=== PATIENT | female | born 1940 | race Caucasian/White ===

== ENCOUNTER → 2016-08-18 | Outpatient (CLI) | payer MEDICARE, BC | LOC: WC.BC 08:54 | DX: C50.912 Malignant neoplasm of unspecified site of left female breast (principal); Z08 Encounter for follow-up examination after completed treatment for malignant neoplasm | CPT/HCPCS: G0204; G0279 ==

== ENCOUNTER 2017-03-08 07:30 | Inpatient (IN) ==
[~2017-03-08 07:30] MED LIST: ACETAMINOPHEN 500 MG TABLET PO ONE; CLINDAMYCIN PB 900 MG/50 ML BAG IV ONE; DEXAMETHASONE 4 MG/ML INJECTION IVP ONE; FAMOTIDINE PB 20 MG/50 ML BAG IV ONE; LIDOCAINE 1% (10mg/ml) 2mL INJ PF SDV ID ONE; METOCLOPRAMIDE 10mg/2ml INJECTION IVP ONE; NOZIN NASAL SWAB NAS ONE; ONDANSETRON 4 MG/2 ML INJECTION IVP ONE; TRANEXAMIC ACID 1,000 MG in NS 100 ML IV ONE
[2017-03-08] MEDS ORDERED: EPINEPHrine PF 0.25 MG, BUPIVACAINE 0.25% PF 30 ML, KETOROLAC INJ 60 MG in NS 30 ML OPSITE ONE (08:00)
[2017-03-08 08:28] VITALS: BMI 29.0
[2017-03-08] MEDS: LR 1,000 ML IV SCH ×2 (09:01→12:24)
[2017-03-08] MEDS ORDERED: VANCOMYCIN 1,000 MG INJECTION ONE (10:02)
--- NOTE | 2017-03-08 10:06 | Anesthesia Preoperative Report ---
Anesthesia Preoperative Record - Date and Time Date: 03/08/17 Preoperative Diagnosis: Lt TKA M17.12 Proposed Procedure: Left Total Knee Replacement NPO Since Date: 03/08/17 NPO Since Time: 00:00 Allergies/Adverse Reactions: Allergies Allergy/AdvReac Type Severity Reaction Status Date / Time Penicillins Allergy Mild EDEMA OF Verified 03/08/17 08:30 MOUTH Sulfa (Sulfonamide Allergy Mild EDEMA OF Verified 03/08/17 08:30 Antibiotics) MOUTH meloxicam [From Mobic] Allergy Hypertensio Verified 03/08/17 08:30 n morphine AdvReac Unknown N/V; Verified 03/08/17 08:30 'makes me crazy, out of my head' - Vital Signs Vital Signs: Temperature 97.5 F 03/08/17 08:28 Pulse Rate 76 03/08/17 08:56 Respiratory Rate 20 03/08/17 08:28 Blood Pressure 163/86 H 03/08/17 08:28 Pulse Oximetry 97 03/08/17 08:28 Height and Weight: Height 5 ft 4 in Weight 76.9 kg Body Mass Index 29.0 - Medications Inpatient Medications: Current Medications Epinephrine HCl 0.25 mg/Bupivacaine HCl 30 ml/Ketorolac Tromethamine 60 mg/ Sodium Chloride 62.25 mls @ 1 mls/hr OPSITE INTRAOP ONE PRN Reason: Protocol Stop: 03/10/17 22:14 Lactated Ringer's (Lactated Ringers) 1,000 mls @ 50 mls/hr IV .Q20H DARRIAN Last Admin: 03/08/17 09:01 Dose: 50 mls/hr Sodium Chloride (Iv Flush) 10 - 80 ml IV PRN PRN PRN Reason: Flushing Home Medications: Home Medications Medication Instructions Recorded Confirmed Type Letrozole [Femara] 2.5 tab PO DAILY #30 tab 08/31/16 03/08/17 History calcium carbonate 600 mg calcium 1,200 mg PO BID tab 12/09/16 03/08/17 History (1,500 mg) tablet Acetaminophen SR [Tylenol 650 - 1,300 mg PO Q8HR PRN 02/18/17 03/08/17 History Arthritis] Biotin 5,000 mcg PO DAILY 02/18/17 03/08/17 History Cholecalciferol (Vitamin D3) 1 cap PO DAILY 02/18/17 03/08/17 History [Vitamin D3] Magnesium Oxide [Magnesium] 500 mg PO DAILY 02/18/17 03/08/17 History Metoprolol Succinate (XL) [Toprol 50 mg PO DAILY 02/18/17 03/08/17 History Xl] Vit No.124/Iron/Folic 1 each PO DAILY 02/18/17 03/08/17 History [ Vitamin Tablet] THYROID 30mg [[place] Thyroid] 30 mg PO 5XW 02/18/17 03/08/17 History Thyroid,Pork [[place] Thyroid] 15 mg PO 2XW 02/18/17 03/08/17 History Tramadol [Ultram] 50 mg PO Q6HR PRN 02/18/17 03/08/17 History Is Patient on Beta Reina?: Yes Beta Reina Last Dose Date/Time: 03/08/17 AM - Medical History Respiratory: DENIES: Sleep Apnea Cardiovascular: Reports: Hypertension Gastrointestional: Reports: Gastroesophageal Reflux Disease (RARELY) Neuro/Musculoskeletal: Reports: HX.MS.OSAR Denies: Back Problems, Cerebrovascular Accident, Depression, Headaches, Loss of Consciousness, Muscle Weakness, Neuromuscular Disorder, Paralysis, Paresthesia, Syncope, Seizures, Other Renal/Endocrine: Reports: Thyroid Disease (hypo) Other History: Reports: Cancer (left breast-oral medication currently) - Surgical History HEENT Surgeries: Reports: Eye Surgery (charo cataract ext with IOL implant), Tonsillectomy Musculoskeletal Surgery/Tx: Reports: Joint Surgery (Lt TSA), Orthopedic Surgery (ORIF Rt Ankle) Reproductive Surgery/Treatment: Reports: Hysterectomy, Lumpectomy (left breast) - Social History Smoking Status: Never smoker Substance Use Type: does not use Alcohol Intake: current Alcohol Intake Frequency: holidays/special occasions only - Pertinent Findings EKG: Sinus Rhythm - Physical Exam Respiratory Exam: Present: lungs clear, bilateral breath sounds equal Cardiovascular Exam: Present: regular rate and rhythm, no murmur - Airway Assessment Mallampati Score: II TMD: 2 Fingerbreadths Neck Extension: fair Overall Assessment: may be difficult intubation - ASA ASA Score: 2 - Plan Anesthesia: Neuroaxial Peripheral Nerve Block: Saphenous-Left - Discussion Discussion: Discussed risks/options/alternatives of anesthesia and questions answered. Patient consents. Nursing pain assessment noted. Present for Discussion: family member Attestation Statement: Prior to the delivery of any anesthetic medication, I examined the patient, developed the plan, obtained the patient's consent and discussed the risk and benefits of the procedure with the patient/guardian. - Additional Information Seen by Anesthesia: Yes
[2017-03-08] MEDS ORDERED: MIDAZOLAM 2mg/2ml INJECTION ONE (10:28)
[2017-03-08] MEDS ORDERED: VANCOMYCIN 1,000 MG INJECTION IAR ONE (11:28)
[2017-03-08] MEDS ORDERED: PROPOFOL 1,000 MG/100 ML VIAL IV ONE (11:38)
[2017-03-08] MEDS ORDERED: ROPIVACAINE 0.5% (5mg/ml) 30ml INJ ONE (11:58)
--- NOTE | 2017-03-08 12:07 | Operative Note ---
- Procedure Preoperative Diagnosis: Left knee primary degenerative joint disease Postoperative Diagnosis: Same as preoperative diagnosis. Surgeon: Villa Hobbs MD Attacher: Cesar Harris Complications: None. Anesthesia: Spinal. Estimated Blood Loss: See Anesthesia Record. Fluids: Please see Anesthesia Record. Description of Procedure: Mrs. Jarrell and her left knee were identified and marked in the preoperative holding area. She was brought back to the operating suite after a saphenous nerve block was placed in the preoperative holding area. Spinal anesthetic was administered and she was placed supine on the operating table. The left lower extremity was prepped and draped in my normal sterile fashion. Timeout was performed. The [employer] robot was used during the surgery. She had a fixed varus deformity with a flexion contracture of 8. A standard anterior midline incision followed by medial parapatellar arthrotomy was performed. Anterior fat pad and meniscus were removed. She had severe disease in the medial compartment as well as in the patellofemoral compartment. The patella was resurfaced to a size 29. Tibial and femoral arrays were placed both within the original incision. Checkpoints were then placed both in the femur and the tibia. The bone was then registered with the [employer] robot. Osteophytes were removed and gaps were captured both 90 and 0 with correction. The [employer] robotic software was used to adjust the components to obtain 18 mm gaps. The [employer] robotic arm was then used to assist with the bone cuts. Posterior osteophytes and remaining meniscus were removed. Trial components were placed. We used a 2 femur and a to tibia with a 9 mm spacer. She has slight tilt of her patella so lateral release was performed after that she tracked well and was well balanced throughout range of motion. The tibia was then stamped at a size 2 with the proper rotation. Trial components fit well so press-fit components were selected and were press-fit into place. Spacer was placed. The knee was ranged one more time to ensure good stability, balance and patellar tracking. 1 g of vancomycin powder was then placed into the knee joint. The capsulotomy was then closed with #1 Vicryl. I then left my technical staff assistant to close the subcutaneous tissue with 2-0 Vicryl. Running 4-0 Monocryl will be used in the subcuticular layer. Dermabond will be used on the skin followed by sterile dressing. After drapes are removed patient will be taken to recovery room under the care of anesthesia.
[2017-03-08] MEDS ORDERED: ONDANSETRON 4 MG/2 ML INJECTION IVP PRN (13:13)
[2017-03-08] MEDS ORDERED: DiphenhydrAMINE 25 MG CAPSULE PO PRN (13:13)
[2017-03-08] MEDS ORDERED: LORazepam 1 MG TABLET PO PRN (13:13)
[2017-03-08] MEDS ORDERED: WARFARIN - PHARMACY CONSULT MC ONE (13:13)
[2017-03-08] MEDS ORDERED: DiphenhydrAMINE 50 MG/ML INJECTION IVP PRN (13:13)
[2017-03-08] MEDS ORDERED: NOZIN NASAL SWAB NAS ONE (13:13)
[2017-03-08] MEDS: NS 1,000 ML IV SCH (13:23)
[2017-03-08] MEDS: NOZIN NASAL SWAB NAS SCH ×2 (13:23→21:08)
[2017-03-08] MEDS: ACETAMINOPHEN 325 MG TABLET PO SCH ×3 (13:28→20:57)
--- NOTE | 2017-03-08 13:55 | Anesthesia Procedure Note ---
Peripheral Nerve Blockade - Procedure Physician: Jose Alberto Hobbs MD Date: 03/08/17 Surgical Procedure: Left Total Knee Replacement Discussion: Discussed risks/options/alternatives of anesthesia and questions answered. Patient consents. Nursing pain assessment noted. Block Start: 12:26 Block Stop: 12:28 Blocked Employed: Adductor Canal Indication: Post-Operative Pain Approach: Left Side Confirmed Position: Supine Patient: Consent, Risks/Benefits Discussed, Informed, Post Block Act. Discussed IV Sedation: No Sedation: Awake Initial Vital Signs: Temperature 97.5 F 03/08/17 08:28 Temperature Source Oral 03/08/17 08:28 Pulse Rate 79 03/08/17 08:28 Respiratory Rate 20 03/08/17 08:28 Blood Pressure 163/86 H 03/08/17 08:28 Blood Pressure Mean 111 03/08/17 08:28 Blood Pressure Position Sitting 03/08/17 08:28 Pulse Oximetry 97 03/08/17 08:28 Oxygen Delivery Method 03/08/17 08:28 Post Vital Signs: Temperature 95.9 F L 03/08/17 13:05 Pulse Rate 72 03/08/17 13:20 Respiratory Rate 18 03/08/17 13:20 Blood Pressure 143/79 H 03/08/17 13:20 Pulse Oximetry 97 03/08/17 13:20 Ultrasound Used?: Yes - Injectate Ropivacaine (%): 0.5 Ropivacaine (mL): 20 Was Epi 1:200,000 Used?: No Injection: Injection made incrementally with constant monitoring and aspiration every ml
--- NOTE | 2017-03-08 13:55 | Anesthesia Postoperative Note ---
- Date and Time Date: 03/08/17 Time: 12:40 - Status Patient Participated in Evaluation: Patient Participated in Person Vital Signs: Temperature 95.9 F L 03/08/17 13:05 Pulse Rate 72 03/08/17 13:20 Respiratory Rate 18 03/08/17 13:20 Blood Pressure 143/79 H 03/08/17 13:20 Pulse Oximetry 97 03/08/17 13:20 Respiratory Function: Airway Patent Cardiovascular Function: Regular Pulse EKG: Sinus Rhythm Mental Status: Alert and Oriented Pain Intensity: 4 Hydration: IV Infusing Complications During Recover: None Apparent - Follow-Up Instructions Instructions: Per Surgeon
--- NOTE | 2017-03-08 14:19 | XRay Report ---
Indication: postoperative image PROCEDURE: XR knee LT 2V: Encounter: Initial Comparison: January 10, 2017 Findings: Postoperative changes of left total knee replacement are seen. There is expected postoperative subcutaneous gas. No evidence of hardware failure or acute fracture. No retained radiopaque surgical instruments or sponges. Overlying material causing artifact. Impression: New left total knee prosthesis without evidence of immediate complication. .
[2017-03-08] MEDS: TRAMADOL 50 MG TABLET PO PRN ×2 (14:22→22:46)
--- NOTE | 2017-03-08 15:19 | Pharmacy Consult ---
Pharmacy Consult-Warfarin - Consult Information COUMADIN CONSULT (Initial): 5'4" 76 yo female 76.9 kg for warfarin therapy. Dx: surgical procedure - Total Left Knee Baseline INR = None. Pt does not take anticoagulant medications at home per home med list. Will give Warfarin 4 mg today. Pt also receiving Enoxaparin 40 mg SQ q24hrs. Pharmacy will monitor her INR and adjust dose. Thank you. Preeti Dixon, PharmD
[2017-03-08] MEDS ORDERED: WARFARIN 4 MG TABLET PO SCH (15:30)
[2017-03-08] MEDS: CLINDAMYCIN PB 900 MG/50 ML BAG IV SCH ×2 (17:23→22:46)
[2017-03-08] MEDS: DEXAMETHASONE 4 MG/ML INJECTION IVP SCH (17:36)
[2017-03-08] MEDS ORDERED: SALINE FLUSH 10ml SYRINGE IV PRN (18:49)
[2017-03-08] MEDS: DOCUSATE SODIUM 100 MG CAPSULE PO SCH (20:57)
[2017-03-08] MEDS: ENOXAPARIN 40 MG/0.4 ML INJECTION SQ SCH (20:58)
[2017-03-08] MEDS ORDERED: SENNOSIDES 8.6 MG TABLET PO SCH (21:00)
[2017-03-09] MEDS: DEXAMETHASONE 4 MG/ML INJECTION IVP SCH (02:33)
[2017-03-09] MEDS: NS 1,000 ML IV SCH (02:33)
[2017-03-09] MEDS: CLINDAMYCIN PB 900 MG/50 ML BAG IV SCH (05:06)
[2017-03-09] MEDS: NOZIN NASAL SWAB NAS SCH ×3 (05:07→14:19)
[2017-03-09 07:33] VITALS: O2SAT 95
[2017-03-09] MEDS: TRAMADOL 50 MG TABLET PO PRN ×2 (07:33→14:19)
--- NOTE | 2017-03-09 08:22 | Orthopedic Progress Note ---
Date: Subjective/Severity of Illness: Angélica is doing very well. Minimal pain. No CP or breathing issues. She has been up with good tolerance. Plans on going home today. Orthopedic Objective PO Vital signs: Temperature 96.9 F 03/09/17 07:33 Pulse Rate 68 03/09/17 07:33 Respiratory Rate 18 03/09/17 07:33 Blood Pressure 134/71 03/09/17 07:33 Pulse Oximetry 95 03/09/17 07:33 Height and Weight: Height 5 ft 4 in Weight 177 lb 4.026 oz Body Mass Index 29.0 - Constitutional General Appearance: Present: alert, cooperative, no acute distress - Respiratory Exam Present: non-labored - Extremities Exam Extremities: Present: pulses intact, normal capillary refill. Absent: calf tenderness - Surgical Site Incision: Mepilex dressing intact, no drainage - Integumentary Exam Present: pink, warm, dry - Neurological Exam Present: intact to light touch, no deficits - Psychiatric Exam Present: alert, normal affect - Labs Result Diagrams: 03/09/17 04:06 03/09/17 04:06 Abnormal lab results 03/09/17 03/09/17 Range/Units 04:06 04:06 Hct 33.8 L (36-46) % Creatinine 0.6 L (0.7-1.2) MG/DL BUN/Creatinine Ratio 28 H (6-26) RATIO Glucose 137 H (65-110) MG/DL H & H 03/09/17 Range/Units 04:06 Hgb 12.1 (12-16) GM/DL Hct 33.8 L (36-46) % Coagulation 03/09/17 Range/Units 04:06 INR 1.21 (0.99-1.21) Orthopedic Assessment and Plan (1) Primary osteoarthritis of left knee Status: Acute Assessment and Plan: Lovenox bridge and Coumadin protocol for VTE prophylaxis. ( Pt has hx of breast CA and is still taking an estrogen blocking agent. ) SCD's. PT/OT services to improve independent function. Discharge Planning per Case Management. - Anticoagulation Therapy Anticoagulation: Lovenox 40 mg SQ Daily x 30 days from day of surgery Hospital Course Summary Disclaimer: The visit summary below is not to be considered part of the above Progress Note.
[2017-03-09] MEDS: ACETAMINOPHEN 325 MG TABLET PO SCH ×2 (08:45→12:21)
[2017-03-09] MEDS: DOCUSATE SODIUM 100 MG CAPSULE PO SCH (08:46)
--- NOTE | 2017-03-09 08:50 | Pharmacy Consult ---
Pharmacy Consult-Warfarin - Laboratory Information 03/09/17 04:06 INR 1.21 - Consult Information COUMADIN CONSULT (Recurring): PT RECEIVED 4 MG WARFARIN FIRST DOSE. NO BASELINE INR. INR TODAY IS 1.22. WILL GIVE 5 MG WARFARIN TODAY (03/09). PT IS ALSO ON ENOXAPARIN 40 MG SQ Q24 HRS. THANK YOU. MARSHALL PANDEY, PHARMD
[2017-03-09] MEDS ORDERED: POLYETHYL GLYCOL 3350 17gm PACKET PO SCH (09:00)
[2017-03-09] MEDS ORDERED: METOPROLOL SUCCINATE 50 MG PO SCH (09:00)
[2017-03-09] MEDS ORDERED: LETROZOLE 2.5 MG PO SCH (09:00)
[2017-03-09] MEDS ORDERED: MAGNESIUM OXIDE 400 MG TABLET PO SCH (09:00)
[2017-03-09] MEDS ORDERED: WARFARIN 5 MG TABLET PO SCH (12:00)
[2017-03-09] MEDS ORDERED: SENNOSIDES 8.6 MG TABLET PO PRN (12:22)
[2017-03-09 12:33] VITALS: TEMP 97.2
[2017-03-09] MEDS: ENOXAPARIN 40 MG/0.4 ML INJECTION SQ SCH (14:19)
--- NOTE | 2017-03-09 14:34 | Discharge Summary ---
Orthopedic Discharge Info Date of admission: 03/08/17 08:07 Primary care physician: Bradly Ray DO Attending Physician: Jose Alberto Hobbs MD Consults: 03/08/17 12:10 Consult to Anesthesiology [CONS] Routine Reason For Exam: Preoperative Assessment 03/08/17 13:13 Case Management Consult [CONS] Routine Reason For Exam: Discharge Planning DME-Walker [CONS] Routine Height: 5 ft 4 in Weight: 169 lb 8.568 oz Comment: change dressing in 2 weeks Total Joint Outpatient Therapy [CONS] Routine Comment: change dressing in 2 weeks - Discharge Diagnosis (1) Primary osteoarthritis of left knee Status: Acute - Procedures Procedures: Left TKA - Laboratory Result Diagrams: 03/09/17 04:06 03/09/17 04:06 Laboratory: Abnormal lab results 03/09/17 03/09/17 Range/Units 04:06 04:06 Hct 33.8 L (36-46) % Creatinine 0.6 L (0.7-1.2) MG/DL BUN/Creatinine Ratio 28 H (6-26) RATIO Glucose 137 H (65-110) MG/DL H & H 03/09/17 Range/Units 04:06 Hgb 12.1 (12-16) GM/DL Hct 33.8 L (36-46) % Coagulation 03/09/17 Range/Units 04:06 INR 1.21 (0.99-1.21) Orthopedic Discharge HPI - HPI Comments This patient was admitted for elective surgical tx of end stage degenerative joint disease that failed to respond to conservative treatment. Further details of this is found in the admission H&P. Orthopedic Hospital Course Hospital course: 03/09/17 14:31 After appropriate preoperative clearance and signing of operative consent, the patient was given IV antibiotics, according to orthopedic protocol. The patient was taken to the operating room and underwent elective joint arthroplasty. Following surgery, antibiotics were discontinued less than 24 hours according to joint protocol. Appropriate anticoagulants were initiated and SCDs added for DVT prevention. The dressing was clean, dry, and intact. Pain control was obtained via multimodal approach. Bowel motivation addressed with scheduled and PRN medications. Early mobilization was initiated through PT services. Discharge arrangements made by a collaborative effort between the patient and Case Management. Follow-up is scheduled in 2-3 weeks. Discharge instructions given by orthopedic providers and nursing staff at discharge. Discharge condition was good. Ongoing care required?: No Discharge Plan - Med Rec/Dispo Lynda Instructions: [facility] [place] Postop Instructions Additional Instructions: [facility] ON 03/11/2017 AT 12:30PM FOR PHYSICAL THERAPY EVAL WITH [facility]. PHONE [phone] COME TO [facility] [place] [facility] ([address]) EVERY DAY FOR 5 DAYS BEGINNING MARCH 10 FOR LOVENOX INJECTIONS. COME TO [facility] [place] EVERY TUESDAY AND TUESDAY WHILE TAKING COUMADIN FOR LAB. YOUR FIRST LAB APPOINTMENT WILL BE MARCH 10 IN THE [facility]ION [facility]. Prescriptions: New Acetaminophen [Tylenol] 650 mg PO QID tab PEG 3350 17gm PACKET [Miralax] 17 gm PO DAILY packet Tramadol [Ultram] 50 - 100 mg PO Q6H PRN #60 tab PRN Reason: Pain Enoxaparin Sodium [Lovenox] 40 mg SQ Q24H #5 syringe Warfarin [Coumadin] 2 tab PO 1700 #60 tab Continue Thyroid,Pork [[place] Thyroid] 15 mg PO 2XW THYROID 30mg [[place] Thyroid] 30 mg PO 5XW Metoprolol Succinate (XL) [Toprol Xl] 50 mg PO DAILY Magnesium Oxide [Magnesium] 500 mg PO DAILY Cholecalciferol (Vitamin D3) [Vitamin D3] 1 cap PO DAILY Letrozole [Femara] 2.5 tab PO DAILY #30 tab Vit No.124/Iron/Folic [ Vitamin Tablet] 1 each PO DAILY Biotin 5,000 mcg PO DAILY calcium carbonate 600 mg calcium (1,500 mg) tablet 1,200 mg PO BID tab Discontinued Tramadol [Ultram] 50 mg PO Q6HR PRN PRN Reason: Pain Acetaminophen SR [Tylenol Arthritis] 650 - 1,300 mg PO Q8HR PRN PRN Reason: Pain - Disposition Discharged Home, Self-Care
[2017-03-09 16:07] VITALS: BP 126/66; PULSE 63; RESP 16
[2017-03-10] MEDS ORDERED: BISACODYL 10 MG SUPPOSITORY RECTALLY SCH (20:00)
== END 2017-03-09 15:50 | disposition home or self-care (01) | DRG 470 ==
LOC: SRG 08:07
PROVIDERS: ADMIT Orthopaedic Surgery; ATTEND Orthopaedic Surgery